=== PATIENT | female | born 1980 | race American Indian/Alaskan Native ===

== ENCOUNTER 2017-03-29 14:30 | Emergency (ER) | payer MEDICAID ==
[2017-03-29 14:45] VITALS: BP 124/74
--- NOTE | 2017-03-29 14:51 | Emergency Department Report ---
Chief Complaint: Weakness Stated Complaint: LOW IRON, 17 WKS W/TWINS Time Seen by Provider: 03/29/17 14:48 - HPI History of Present Illness: PT states she is 17 weeks with twins. PT states she is fatigued. PT States she has been seen by [facility] and told that her iron is low. PT states she has a hx of iron transfusions. - ROS Review of Systems: - cp - sob - Exam Vital Signs: Vital Signs 03/29/17 14:39 Temperature 98.3 F Pulse Rate 103 H Respiratory 20 Rate Blood Pressure 124/74 O2 Sat by Pulse 100 Oximetry Physical Exam: PT looks well, non toxic gravid MSE screening note: Focused history and physical exam performed. Due to findings the following was ordered: labs ED Disposition for MSE Condition: Stable
[2017-03-29 15:11] LABS: Basophils % (Auto) 0.4 % (0.0-1.8); Eosinophils % (Auto) 0.1 % (0.0-4.3); Hematocrit 22.6 % (30.3-42.9); Hemoglobin 6.8 gm/dl (10.1-14.3); Mean Corpuscular HGB Conc 30 % (30-34); Platelet Count 371 K/mm3 (140-440); Red Blood Count 3.95 M/mm3 (3.65-5.03); White Blood Count 8.3 K/mm3 (4.5-11.0)
[2017-03-29 15:15] LABS: Mean Corpuscular Hemoglobin 17 pg (28-32); Mean Corpuscular Volume 57 fl (79-97); Red Cell Distribution Width 22.4 % (13.2-15.2)
[2017-03-29 15:25] LABS: Alanine Aminotransferase 6 units/L (7-56); Albumin 3.2 g/dL (3.9-5); Albumin/Globulin Ratio 0.8 %; Alkaline Phosphatase 42 units/L (35-129); Anion Gap 19 mmol/L; Blood Urea Nitrogen 11 mg/dL (7-17); Calcium 8.4 mg/dL (8.4-10.2); Carbon Dioxide 19 mmol/L (22-30); Chloride 99.5 mmol/L (98-107); Glucose 100 mg/dL (65-100); Iron 15 ug/dL (37-170); Potassium 3.2 mmol/L (3.6-5.0); Sodium 134 mmol/L (137-145)
== END 2017-03-30 00:57 | disposition left against medical advice (07) ==
LOC: ED 14:30
DX: O26.892 Other specified pregnancy related conditions, second trimester (principal); R53.83 Other fatigue; Z3A.17 17 weeks gestation of pregnancy; Z53.21 Procedure and treatment not carried out due to patient leaving prior to being seen by health care provider
CPT/HCPCS: 36415; 80053; 83540; 84702; 85025; 86850; 86900; 86901

== ENCOUNTER 2017-04-02 19:43 | Emergency (ER) | payer MEDICAID ==
[2017-04-02 20:27] LABS: Basophils % (Auto) 0.2 % (0.0-1.8); Eosinophils % (Auto) 0.3 % (0.0-4.3); Mean Corpuscular HGB Conc 29 % (30-34); Platelet Count 366 K/mm3 (140-440); Red Blood Count 3.93 M/mm3 (3.65-5.03); White Blood Count 9.7 K/mm3 (4.5-11.0)
[2017-04-02 20:48] LABS: Hematocrit 23.4 % (30.3-42.9); Hemoglobin 6.8 gm/dl (10.1-14.3); Mean Corpuscular Hemoglobin 17 pg (28-32); Mean Corpuscular Volume 60 fl (79-97); Red Cell Distribution Width 22.5 % (13.2-15.2)
[2017-04-02 21:28] LABS: Bilirubin,Urine NEG (Negative); Blood,Urine NEG (Negative); Ketones,Urine NEG (Negative); Leukocyte Esterase,Urine LG (Negative); Mucus,Urine 2+ /HPF; Nitrite,Urine NEG (Negative); Urobilinogen,Urine < 2.0 mg/dL (<2.0)
--- NOTE | 2017-04-02 21:55 | Emergency Department Report ---
HPI - General Chief Complaint: Vaginal Bleeding Time Seen by Provider: 04/02/17 21:39 - HPI HPI: This is a 36 year old who presents to the ED at about 18 weeks gestation complaining of vaginal spotting and discharge 2 days. Patient states on Wednesday she noticed pinkish vaginal spotting that resolved on its own. Patient states yesterday she noted some vaginal malodorous discharge. Patient states she has not been to her BUG TRIMMER this , Dr. Michele. She denies fever or stressors nausea/vomiting/abdominal pain/chest pain or shortness of breath. ED Past Medical Hx - Past Medical History Previous Medical History?: Yes Additional medical history: Vaginal delivery x 4. anemia - Surgical History Past Surgical History?: Yes Additional Surgical History: D&C after a vaginal delivery due to retained POC - Social History Smoking Status: Never Smoker Substance Use Type: None - Medications Home Medications: Home Medications Medication Instructions Recorded Confirmed Last Taken Type metroNIDAZOLE [Flagyl TAB] 500 mg PO Q12HR #12 tab 04/02/17 Unknown Rx ED Review of Systems ROS: Stated complaint: VAGINAL BLEEDING/LOWER ABD PAIN/17 WKS PREG Other details as noted in HPI Constitutional: denies: chills, fever Eyes: denies: eye pain, eye discharge, vision change ENT: denies: ear pain, throat pain, dental pain, hearing loss, congestion Respiratory: denies: cough, shortness of breath, wheezing Cardiovascular: denies: chest pain, palpitations Endocrine: no symptoms reported Gastrointestinal: denies: abdominal pain, nausea, vomiting, diarrhea Genitourinary: discharge. denies: urgency, dysuria, frequency, hematuria, dyspareunia Musculoskeletal: denies: back pain, joint swelling, arthralgia Skin: denies: rash, lesions Neurological: denies: headache, weakness, paresthesias Psychiatric: denies: anxiety, depression Hematological/Lymphatic: denies: easy bleeding, easy bruising Physical Exam - Physical Exam Vital Signs: Vital Signs 04/02/17 19:51 Temperature 98.5 F Pulse Rate 89 Respiratory 20 Rate Blood Pressure 119/77 O2 Sat by Pulse 100 Oximetry Physical Exam: GENERAL: Alert and oriented x3, no apparent distress, Normal Gait, atraumatic. HEAD: Head is normocephalic and a-traumatic. EYES: Extra ocular muscles are intact. Pupils are equal, round, and reactive to light and accommodation. NECK: Supple. Non edematous,. No lymphadenopathy or thyromegaly. No C-spine tenderness LUNGS: Symetrical with respiration, No wheezing, no rales or crackles, CTAB. HEART: S1, S2 present, regular rate and rhythm without murmur, no rubs, no gallops. Non tender to palpation ABDOMEN: Gravid, No organomegaly was noted,Positive bowel sounds, soft, and non- distended. . Nontender to palpation on all Quadrants, NO CVA tenderness. BACK: Full range of motion, no spinal tenderness, nontender to palpation. GENITOURINARY: External genitalia without erythema, exudate or discharge. Vaginal vault is with malodourous, greenish discharge. Cervix is of normal color without lesion. Cervical os is closed. cervix is friable, Minimal bleeding noted. Uterus is noted to be of normal size and nontender. No cervical motion tenderness. No masses are palpated. The adnexa are without masses or tenderness. PSYCHIATRIC: Mood is congruent with affect, denies suicidal or homicidal ideations. SKIN: Warm and dry, No lesions, No ulceration or induration present. ED Course Vital Signs 04/02/17 19:51 Temperature 98.5 F Pulse Rate 89 Respiratory 20 Rate Blood Pressure 119/77 O2 Sat by Pulse 100 Oximetry ED Medical Decision Making - Lab Data Result diagrams: 04/02/17 20:07 Laboratory Last Values WBC 9.7 K/mm3 (4.5-11.0) 04/02/17 20:07 RBC 3.93 M/mm3 (3.65-5.03) 04/02/17 20:07 Hgb 6.8 gm/dl (10.1-14.3) L 04/02/17 20:07 Hct 23.4 % (30.3-42.9) L 04/02/17 20:07 MCV 60 fl (79-97) L 04/02/17 20:07 MCH 17 pg (28-32) L 04/02/17 20:07 MCHC 29 % (30-34) L 04/02/17 20:07 RDW 22.5 % (13.2-15.2) H 04/02/17 20:07 Plt Count 366 K/mm3 (140-440) 04/02/17 20:07 Lymph % (Auto) 19.9 % (13.4-35.0) 04/02/17 20:07 [place] % (Auto) 9.8 % (0.0-7.3) H 04/02/17 20:07 Eos % (Auto) 0.3 % (0.0-4.3) 04/02/17 20:07 Baso % (Auto) 0.2 % (0.0-1.8) 04/02/17 20:07 Lymph # 1.9 K/mm3 (1.2-5.4) 04/02/17 20:07 [place] # 0.9 K/mm3 (0.0-0.8) H 04/02/17 20:07 Eos # 0.0 K/mm3 (0.0-0.4) 04/02/17 20:07 Baso # 0.0 K/mm3 (0.0-0.1) 04/02/17 20:07 Seg Neutrophils % 69.8 % (40.0-70.0) 04/02/17 20:07 Seg Neutrophils # 6.7 K/mm3 (1.8-7.7) 04/02/17 20:07 HCG, Quant 03081 mIU/mL (0-4) H 04/02/17 20:07 Urine Color Yellow (Yellow) 04/02/17 20:25 Urine Turbidity Slightly-cloudy (Clear) 04/02/17 20:25 Urine pH 5.0 (5.0-7.0) 04/02/17 20:25 Ur Specific [place] 1.026 (1.003-1.030) 04/02/17 20:25 Urine Protein 30 mg/dl mg/dL (Negative) 04/02/17 20:25 Urine Glucose (UA) Neg mg/dL (Negative) 04/02/17 20:25 Urine Ketones Neg mg/dL (Negative) 04/02/17 20:25 Urine Blood Neg (Negative) 04/02/17 20:25 Urine Nitrite Neg (Negative) 04/02/17 20:25 Urine Bilirubin Neg (Negative) 04/02/17 20:25 Urine Urobilinogen < 2.0 mg/dL (<2.0) 04/02/17 20:25 Ur Leukocyte Esterase Lg (Negative) 04/02/17 20:25 Urine WBC (Auto) 31.0 /HPF (0.0-6.0) H 04/02/17 20:25 Urine RBC (Auto) 5.0 /HPF (0.0-6.0) 04/02/17 20:25 U Epithel Cells (Auto) 8.0 /HPF (0-13.0) 04/02/17 20:25 Urine Mucus 2+ /HPF 04/02/17 20:25 Blood Type A POSITIVE 04/02/17 20:00 Antibody Screen Negative 04/02/17 20:00 - Radiology Data Radiology results: report reviewed, image reviewed FINAL REPORT PROCEDURE: US OB T gt; = 14 WK FETUS ADD GEST TECHNIQUE: Real-time transabdominal sonography of the uterus, placenta, amniotic fluid, adnexa, and fetus was performed with image documentation. Measurements were obtained to determine age/size. M-mode Doppler was used to document heartbeat. CPT 85765 HISTORY: vag bleed/ pelv pain COMPARISON: No prior studies are available for comparison. FINDINGS: ADDITIONAL GESTATION: Yes This report belongs to fetus B of teen gestation GENERAL: Position: Transverse Placental position: Anterior, without previa. Amniotic fluid volume: Normal. MATERNAL: Uterus: Within normal limits. Cervical length: 4 cm. Internal Os: Closed. FETUS: Heart rate and rhythm: 135 beats per minute MEASUREMENTS: BPD: 4.0 centimeters corresponding to 18 weeks and 1 day HC: 14.9 centimeters corresponding to 18 weeks and 0 days AC: 12.2 centimeters corresponding to 17 weeks and 6 days FL: 2.6 centimeters corresponding to 18 weeks and 0 days Mean Gestational Age (composite criteria): 18 weeks and 0 days Ratio biometry: Normal. Estimated Weight: 216 grams. Interval growth: Not applicable Estimated Due Date (earliest scan): 09/03/2017 IMPRESSION: Twin intrauterine gestation with fetus B at 18 weeks and 0 days. Estimated due date: 09/03/2017. Transcribed By: [facility] Dictated By: COLLETTE RODARTE Electronically Authenticated By: COLLETTE RODARTE Signed Date/Time: 04/02/17 7174 FINAL REPORT PROCEDURE: US OB T gt; = 14 WEEKS FETUS TECHNIQUE: Real-time transabdominal sonography of the uterus, placenta, amniotic fluid, adnexa, and fetus was performed with image documentation. Measurements were obtained to determine age/size. M-mode Doppler was used to document heartbeat. CPT 67380 HISTORY: vag bleed/ pelv pain COMPARISON: No prior studies are available for comparison. FINDINGS: ADDITIONAL GESTATION: None. GENERAL: IUP: Single living intrauterine . Position: Cephalic Placental position: Anterior and fundal, without previa. Amniotic fluid volume: Normal. MATERNAL: Uterus: Within normal limits. Cervical length: 4 centimeters cm. Internal Os: Closed. FETUS: Heart rate and rhythm: 145 beats per minute anatomic survey: Normal. MEASUREMENTS: BPD: 3.6 centimeters corresponding to 17 weeks and 1 day HC: 13.2 centimeters corresponding to 16 weeks and 5 days AC: 10.7 centimeters corresponding to 16 weeks and 4 days FL: 2.5 centimeters corresponding to 17 weeks and 3 days Mean Gestational Age (composite criteria): 17 weeks and 0 days Ratio biometry: Normal. Estimated Weight: 178 grams. Interval growth: Not applicable Estimated Due Date (earliest scan): 09/10/2017 IMPRESSION: Single intrauterine gestation at 17 weeks and 0 days. Estimated due date: 09/10/2017. Normal survey with appropriate growth. Transcribed By: [facility] Dictated By: COLLETTE RODARTE Electronically Authenticated By: COLLETTE RODARTE Signed Date/Time: 04/02/17 3619 - Medical Decision Making 36-year-old female presents with vaginitis and possible STD exposure ED course: CBC, CMP, urinalysis, urine test, OB ultrasound, wet prep, Chlamydia and gonorrhea cultures sent Ultrasound shows twin gestation with no complications CBC within normal limits mild anemia, urinalysis shows leukorrhea Based on examination of the fibula posteriorly urinalysis treated patient prophylactically for STD. I discussed this with the patient. I discussed the patient tested from sex for the next 7-10 days. I discussed with patient the results come back and 3 days and to call back for results. Discussed with patient to keep appointment for BUG TRIMMER for April 13. Patient denies any complications with Critical care attestation.: If time is entered above; I have spent that time in minutes in the direct care of this critically ill patient, excluding procedure time. ED Disposition Clinical Impression: Vaginitis and vulvovaginitis Normal IUP (intrauterine ) on ultrasound Qualifiers: Trimester: second trimester Qualified Code(s): Z34.92 - Encounter for supervision of normal , unspecified, second trimester Disposition: DC-01 TO HOME OR SELFCARE Is pt being admited?: No Does the pt Need Aspirin: No Condition: Stable Instructions: (ED), Vaginitis (ED) Additional Instructions: Keep the appointment with your BUG TRIMMER. Absent from sex until you follow-up which BUG TRIMMER Prescriptions: metroNIDAZOLE [Flagyl TAB] 500 mg PO Q12HR #12 tab Referrals: PRIMARY CAREMD [Referring] - 3-5 Days GA MICHELE MD [Primary Care Provider] - 3-5 Days Forms: Work/School Release Form(ED) Time of Disposition: 23:53
--- NOTE | 2017-04-02 22:50 | Ultrasound Report ---
FINAL REPORT PROCEDURE: US OB \T\gt; = 14 WEEKS FETUS TECHNIQUE: Real-time transabdominal sonography of the uterus, placenta, amniotic fluid, adnexa, and fetus was performed with image documentation. Measurements were obtained to determine age/size. M-mode Doppler was used to document heartbeat. CPT 75830 HISTORY: vag bleed/ pelv pain COMPARISON: No prior studies are available for comparison. FINDINGS: ADDITIONAL GESTATION: None. GENERAL: IUP: Single living intrauterine . Position: Cephalic Placental position: Anterior and fundal, without previa. Amniotic fluid volume: Normal. MATERNAL: Uterus: Within normal limits. Cervical length: 4 centimeters cm. Internal Os: Closed. FETUS: Heart rate and rhythm: 145 beats per minute anatomic survey: Normal. MEASUREMENTS: BPD: 3.6 centimeters corresponding to 17 weeks and 1 day HC: 13.2 centimeters corresponding to 16 weeks and 5 days AC: 10.7 centimeters corresponding to 16 weeks and 4 days FL: 2.5 centimeters corresponding to 17 weeks and 3 days Mean Gestational Age (composite criteria): 17 weeks and 0 days Ratio biometry: Normal. Estimated Weight: 178 grams. Interval growth: Not applicable Estimated Due Date (earliest scan): 09/10/2017 IMPRESSION: Single intrauterine gestation at 17 weeks and 0 days. Estimated due date: 09/10/2017. Normal survey with appropriate growth.
--- NOTE | 2017-04-02 22:59 | Ultrasound Report ---
FINAL REPORT PROCEDURE: US OB \T\gt; = 14 WK FETUS ADD GEST TECHNIQUE: Real-time transabdominal sonography of the uterus, placenta, amniotic fluid, adnexa, and fetus was performed with image documentation. Measurements were obtained to determine age/size. M-mode Doppler was used to document heartbeat. CPT 22486 HISTORY: vag bleed/ pelv pain COMPARISON: No prior studies are available for comparison. FINDINGS: ADDITIONAL GESTATION: Yes This report belongs to fetus B of teen gestation GENERAL: Position: Transverse Placental position: Anterior, without previa. Amniotic fluid volume: Normal. MATERNAL: Uterus: Within normal limits. Cervical length: 4 cm. Internal Os: Closed. FETUS: Heart rate and rhythm: 135 beats per minute MEASUREMENTS: BPD: 4.0 centimeters corresponding to 18 weeks and 1 day HC: 14.9 centimeters corresponding to 18 weeks and 0 days AC: 12.2 centimeters corresponding to 17 weeks and 6 days FL: 2.6 centimeters corresponding to 18 weeks and 0 days Mean Gestational Age (composite criteria): 18 weeks and 0 days Ratio biometry: Normal. Estimated Weight: 216 grams. Interval growth: Not applicable Estimated Due Date (earliest scan): 09/03/2017 IMPRESSION: Twin intrauterine gestation with fetus B at 18 weeks and 0 days. Estimated due date: 09/03/2017.
[2017-04-02] MEDS ORDERED: ROCEPHIN IM ONE (23:32)
[2017-04-02] MEDS ORDERED: ZITHROMAX PO ONE (23:32)
[2017-04-02] MEDS ORDERED: XYLOCAINE 1% MPF 5 mL INFILTRATI ONE (23:32)
[2017-04-03 01:38] VITALS: BP 111/73
== END 2017-04-03 00:25 | disposition home or self-care (01) ==
LOC: ED 19:43
DX: O23.592 Infection of other part of genital tract in pregnancy, second trimester (principal); N76.0 Acute vaginitis; Z3A.18 18 weeks gestation of pregnancy; Z34.92 Encounter for supervision of normal pregnancy, unspecified, second trimester
CPT/HCPCS: 36415; 76805; 76810; 81001; 84702; 85025; 86850; 86900; 86901; 87210; 87591; 96372; 99284; J0696